=== PATIENT | female | born 1950 | race Caucasian/White ===

== ENCOUNTER → 2016-04-07 | Outpatient (REF) | payer MEDICARE ==
[~2016-04-07] MED LIST: ALDA50TA2 PO; AMLODIPINE PO; CELL500T PO; CIPR500T89 PO; CITA20TA2 PO; CYAN1000 IJ; DOXE25CA PO; ENTO3CAP5 PO; FERR325T69 PO; FOLI1TAB2 PO; FURO20TA2 PO; GLIP10TA PO; INSUDET SC; JANUMET PO; LEVO150T6 PO; MAGN250T2 PO; MAGN400T PO; METF500T PO; OMEP40CA2 PO; PRED10TA2 PO; [UNRECOGNIZED DRUG - CODE] PO; [UNRECOGNIZED DRUG - CODE] PO; [UNRECOGNIZED DRUG - OTHER]
== END ==
LOC: M LAB REF 16:10
PROVIDERS: ATTEND Nurse Practitioner Family
DX: R20.2 Paresthesia of skin (principal)

== ENCOUNTER → 2016-07-20 | Outpatient (REF) | payer MEDICARE ==
[2016-07-20 17:20] LABS: FOLATE > 24.0 NG/ML; VITAMIN B12 LEVEL 593 PG/ML
[2016-07-20 20:23] LABS: FERRITIN 6 NG/ML (8-252); PERCENT SATURATION 5.7 % (13.2-37.4); TOTAL IRON BINDING CAPACITY 542 UG/DL (250-450)
== END ==
LOC: M LAB REF 16:16
PROVIDERS: ATTEND Internal Medicine
DX: D64.9 Anemia, unspecified (principal)

== ENCOUNTER → 2016-12-30 | Outpatient (REF) | payer MEDICARE ==
[~2016-12-30] MED LIST changes: +CIPR-249 PO; -CIPR500T89 PO; -FOLI1TAB2 PO; +FOLI1TAB4 PO; -MAGN250T2 PO; +MAGN250T7 PO; -METF500T PO; +METF500T13 PO
== END ==
LOC: M LAB REF 16:58
PROVIDERS: ATTEND Internal Medicine
DX: N39.0 Urinary tract infection, site not specified (principal)

== ENCOUNTER → 2017-06-06 | Outpatient (REF) | payer MEDICARE | LOC: M LAB REF 17:02 | DX: K80.00 Calculus of gallbladder with acute cholecystitis without obstruction (principal) | CPT/HCPCS: 87086 ==

== ENCOUNTER → 2018-11-24 | Outpatient (REF) | payer MEDICARE ==
[~2018-11-24] MED LIST changes: +BUDE3CAP15 PO; -ENTO3CAP5 PO; +FOLI1TAB11 PO; -FOLI1TAB4 PO
== END ==
LOC: M LAB REF 10:06
PROVIDERS: ATTEND Internal Medicine
DX: R19.7 Diarrhea, unspecified (principal)

== ENCOUNTER → 2019-01-09 | Outpatient (REF) | payer MEDICARE ==
[~2019-01-09] MED LIST changes: -MAGN400T PO; +MAGN400T3 PO
== END ==
LOC: M LAB REF 12:53
PROVIDERS: ATTEND Internal Medicine
DX: R19.7 Diarrhea, unspecified (principal)

== ENCOUNTER → 2019-08-21 | Outpatient (REF) | payer MEDICARE | LOC: M LAB REF 16:27 | PROVIDERS: ATTEND Internal Medicine | DX: R21 Rash and other nonspecific skin eruption (principal) ==

== ENCOUNTER → 2019-10-12 | Outpatient (REF) | payer MEDICARE | LOC: M LAB REF 15:13 | PROVIDERS: ATTEND Internal Medicine | DX: R19.7 Diarrhea, unspecified (principal) ==

== ENCOUNTER → 2020-12-04 | Outpatient (REF) | payer MEDICARE | LOC: M LAB REF 11:34 | PROVIDERS: ATTEND Internal Medicine | DX: D51.9 Vitamin B12 deficiency anemia, unspecified (principal); N39.0 Urinary tract infection, site not specified ==

== ENCOUNTER → 2021-08-12 | Outpatient (REF) | payer MEDICARE ==
[~2021-08-12] MED LIST changes: -MAGN400T3 PO; +MAGN400T33 PO
[2021-08-12 17:23] LABS: INR 1.07; PROTHROMBIN TIME 14.3 SECONDS (12.7-14.5)
[2021-08-12 17:24] LABS: PARTIAL THROMBOPLASTIN TIME 30.3 SECONDS (25.9-37.0)
[2021-08-12 17:41] LABS: VITAMIN B12 LEVEL > 2000 PG/ML (247-911)
[2021-08-14 09:25] LABS: C REACTIVE PROTEIN QUANTITATIV < 0.30 MG/DL (0.00-0.30)
[2021-08-14 09:50] LABS: HEPATITIS B SURFACE ANTIGEN NEGATIVE (NEGATIVE)
[2021-08-14 10:17] LABS: HEPATITIS C VIRUS ABY INDEX 0.1 INDEX (<0.8)
[2021-08-14 10:18] LABS: HEPATITIS B CORE ANTIBODY IGM NEGATIVE (NEGATIVE)
== END ==
LOC: M LAB REF 16:18
PROVIDERS: ATTEND Registered Nurse
DX: D51.9 Vitamin B12 deficiency anemia, unspecified (principal); D50.9 Iron deficiency anemia, unspecified; K75.4 Autoimmune hepatitis

== ENCOUNTER 2021-12-21 21:39 | Inpatient (IN) | payer MEDICARE ==
[~2021-12-21] VITALS: Ht 167.6 cm; Wt 121.6 kg
[2021-12-21] MEDS ORDERED: PRED1TABL PO (21:54)
[2021-12-21] MEDS ORDERED: FURO20TA2 PO (21:54)
[2021-12-21 22:52] LABS: BASO % 0.1 % (0.0-1.0); HEMATOCRIT 48.1 % (36.0-47.0); LYMPH # 0.3 10^3/uL (1.5-5.0); LYMPH % 3.8 % (24.0-44.0); MEAN CORPUSCULAR HEMOGLOBIN 35.4 pg (27.0-33.0); MEAN CORPUSCULAR HGB CONC 33.3 g/dl (32.0-36.5); MEAN CORPUSCULAR VOLUME 106.4 fl (80.0-96.0); MONO # 0.1 10^3/uL (0.0-0.8); MONO % 1.3 % (2.0-8.0); NEUTROPHILS # 7.4 10^3/uL (1.5-8.5); NEUTROPHILS % 94.2 % (36.0-66.0); PLATELET COUNT, AUTOMATED 205 10^3/uL (150-450); RED BLOOD COUNT 4.52 10^6/uL (4.00-5.40); WHITE BLOOD COUNT 7.8 10^3/uL (4.0-10.0)
[2021-12-21] MEDS ORDERED: MORPHINE 4 MG/ML 1ML VIAL/SYRINGE IV ONE (23:25)
[2021-12-21] MEDS ORDERED: NS 500 ML IV ONE (23:25)
[2021-12-21 23:32] LABS: ABG BASE EXCESS 1.9 (-2.0-2.0); ABG O2 SATURATION 98.3 % (95.0-99.0); ABG PARTIAL PRESSURE O2 97.8 mmHg (75.0-100.0); ABG STANDARD HCO3 26.2 MEQ/L (22.0-26.0); ABG TOTAL CO2 24.9 MEQ/L (23.0-31.0); ABG pH (ARTERIAL) 7.506 UNITS (7.350-7.450)
[2021-12-21] MEDS ORDERED: HumuLIN R (REGULAR) INSULIN (NovoLIN R) **100U/ML** PER UNIT IV ONE (23:35)
[2021-12-21 23:54] LABS: HEMOGLOBIN A1c 7.1 %
[2021-12-22] MEDS ORDERED: MORPHINE 4 MG/ML 1ML VIAL/SYRINGE IV ONE (01:05)
[2021-12-22 01:11] LABS: ACETONE/KETONE 5.9 MG/DL (<2.81); ALBUMIN 3.2 GM/DL (3.2-5.2); BILIRUBIN,DIRECT 0.7 MG/DL (0.0-0.2); BILIRUBIN,TOTAL 1.8 MG/DL (0.2-1.0); MAGNESIUM LEVEL 2.1 MG/DL (1.8-2.4); PHOSPHORUS LEVEL 2.5 MG/DL (2.5-4.9); TOTAL PROTEIN 6.4 GM/DL (6.4-8.2)
[2021-12-22 02:04] LABS: CALCIUM LEVEL 9.5 MG/DL (8.8-10.2); CREATININE FOR GFR 1.15 MG/DL (0.55-1.30); GLOMERULAR FILTRATION RATE 49.2 (>39); POTASSIUM SERUM 4.5 MEQ/L (3.5-5.1)
[2021-12-22] MEDS ORDERED: GLUCOSE 4GM CHEW TABLET PO PRN (02:10)
[2021-12-22] MEDS ORDERED: DEXTROSE 50% 50 ML SYRINGE IV PRN (02:10)
[2021-12-22] MEDS ORDERED: GLUCAGON INJ 1MG VIAL SC PRN (02:10)
[2021-12-22] MEDS ORDERED: KETOROLAC 30 MG/ML 1ML VIAL IV ONE (02:10)
[2021-12-22] MEDS ORDERED: ACETAMINOPHEN TAB 650MG DOSE (2X325MG) PO PRN ×2 (02:10→03:05)
[2021-12-22] MEDS: LIDOCAINE 5% (LIDODERM) PATCH TD SCH ×2 (02:42→22:16)
[2021-12-22] MEDS ORDERED: ONDANSETRON 4MG 2ML VIAL IV PRN (02:45)
[2021-12-22] MEDS ORDERED: NORCO, ANEXSIA 5/325MG TABLET (HYDROcodone/ACETAMINOPHEN) PO PRN (03:05)
[2021-12-22] MEDS: carisoprodoL 350 MG TAB PO PRN (04:05)
[2021-12-22] MEDS ORDERED: SYNT112T2 PO (04:41)
[2021-12-22] MEDS ORDERED: PRED10TA2 PO (04:41)
[2021-12-22] MEDS ORDERED: FOLI0.4T5 PO (04:41)
[2021-12-22] MEDS ORDERED: GABA600T4 PO (04:41)
[2021-12-22] MEDS ORDERED: NOVO1INJ4 SC (04:41)
[2021-12-22] MEDS ORDERED: CRAN400C PO (04:41)
[2021-12-22] MEDS ORDERED: HYDR-4571 PO (04:41)
[2021-12-22] MEDS ORDERED: NORT50CA PO (04:41)
[2021-12-22] MEDS ORDERED: VITA-183 PO (04:41)
[2021-12-22] MEDS ORDERED: MYCO250C PO (04:41)
[2021-12-22] MEDS ORDERED: C 50TAB PO (04:41)
[2021-12-22] MEDS ORDERED: ESSE250T PO (04:41)
[2021-12-22] MEDS ORDERED: INSUR SC (04:41)
[2021-12-22] MEDS ORDERED: OMEP40CA5 PO (04:41)
[2021-12-22 05:37] LABS: HEMOGLOBIN 14.7 g/dl (12.0-15.5); MEAN CORPUSCULAR HEMOGLOBIN 35.3 pg (27.0-33.0); MEAN CORPUSCULAR HGB CONC 32.7 g/dl (32.0-36.5); MEAN CORPUSCULAR VOLUME 108.2 fl (80.0-96.0); PLATELET COUNT, AUTOMATED 149 10^3/uL (150-450); RED BLOOD COUNT 4.16 10^6/uL (4.00-5.40); WHITE BLOOD COUNT 5.9 10^3/uL (4.0-10.0)
[2021-12-22] MEDS: MORPHINE 2 MG/ML 1ML VIAL IV PRN ×2 (05:43→22:36)
[2021-12-22 06:07] LABS: ALBUMIN 3.2 GM/DL (3.2-5.2); BILIRUBIN,TOTAL 1.6 MG/DL (0.2-1.0); CALCIUM LEVEL 9.6 MG/DL (8.8-10.2); CREATININE FOR GFR 1.09 MG/DL (0.55-1.30); GLOMERULAR FILTRATION RATE 52.4 (>39); POTASSIUM SERUM 4.3 MEQ/L (3.5-5.1); TOTAL PROTEIN 6.4 GM/DL (6.4-8.2)
[2021-12-22] MEDS: HEPARIN SOD (PORCINE) 5000UNITS/ML 1ML VIAL/SYRINGE SC SCH ×2 (08:37→22:15)
[2021-12-22] MEDS: INSULIN LISPRO (NovoLOG) PER UNIT SC SCH ×4 (08:39→22:15)
[2021-12-22] MEDS: ASCORBIC ACID 500 MG TAB PO SCH (08:40)
[2021-12-22] MEDS: GABAPENTIN 300 MG CAP PO SCH ×3 (08:41→22:17)
[2021-12-22] MEDS: predniSONE 5 MG TAB PO SCH (08:41)
[2021-12-22] MEDS: LEVOTHYROXINE 112MCG TABLET (0.112MG) PO SCH (08:44)
[2021-12-22] MEDS: MYCOPHENOLATE MOFETIL 250 MG CAP (J7517) PO SCH ×2 (08:44→22:17)
[2021-12-22] MEDS ORDERED: FUROSEMIDE 20 MG TAB PO SCH (09:00)
[2021-12-22] MEDS ORDERED: SPIRONOLACTONE 50 MG TAB PO SCH (09:00)
[2021-12-22] MEDS: **NOTE PATIENT COMMENT** MISC XX SCH (09:00)
[2021-12-22] MEDS ORDERED: INSULIN LISPRO (NovoLOG) PER UNIT SC PRN (12:05)
[2021-12-22 13:16] VITALS: BP 150/98
[2021-12-22] MEDS: LEVEMIR (INSULIN DETEMIR) 1 UNITS/0.01ML SC SCH ×2 (14:23→22:16)
[2021-12-22 22:00] VITALS: BP 152/95
[2021-12-22] MEDS: NORTRIPTYLINE 25 MG CAP PO SCH (22:17)
[2021-12-23] MEDS: carisoprodoL 350 MG TAB PO PRN ×3 (00:07→22:25)
[2021-12-23] MEDS: LEVOTHYROXINE 112MCG TABLET (0.112MG) PO SCH (05:23)
[2021-12-23] MEDS: MORPHINE 2 MG/ML 1ML VIAL IV PRN ×2 (05:24→08:21)
[2021-12-23 06:00] VITALS: BP 132/87
[2021-12-23] MEDS ORDERED: MORPHINE 2 MG/ML 1ML VIAL IV ONE (08:15)
[2021-12-23] MEDS: **NOTE PATIENT COMMENT** MISC XX SCH (09:00)
[2021-12-23] MEDS: predniSONE 5 MG TAB PO SCH (10:11)
[2021-12-23] MEDS: LEVEMIR (INSULIN DETEMIR) 1 UNITS/0.01ML SC SCH ×2 (10:11→20:49)
[2021-12-23] MEDS: INSULIN LISPRO (NovoLOG) PER UNIT SC SCH ×4 (10:11→20:50)
[2021-12-23] MEDS: ASCORBIC ACID 500 MG TAB PO SCH (10:11)
[2021-12-23] MEDS: MYCOPHENOLATE MOFETIL 250 MG CAP (J7517) PO SCH ×2 (10:12→20:48)
[2021-12-23] MEDS: GABAPENTIN 300 MG CAP PO SCH ×3 (10:15→20:48)
[2021-12-23] MEDS: HEPARIN SOD (PORCINE) 5000UNITS/ML 1ML VIAL/SYRINGE SC SCH ×2 (10:15→20:48)
[2021-12-23] MEDS ORDERED: HYDROMORPHONE HCL 0.5 MG/ 0.5 ML SYRINGE (J1170 PER 1) IV ONE (11:30)
[2021-12-23 14:00] VITALS: BP 118/75
[2021-12-23] MEDS: NORTRIPTYLINE 25 MG CAP PO SCH (20:48)
[2021-12-23] MEDS: LIDOCAINE 5% (LIDODERM) PATCH TD SCH (20:50)
[2021-12-23] MEDS ORDERED: NYSTATIN 100,000 UNITS/GM TOPICAL PWD 15 GM TOP PRN (21:10)
[2021-12-23 22:00] VITALS: BP 137/77
[2021-12-24] MEDS: PERCOCET 5MG/325MG TAB PO PRN ×3 (03:48→17:44)
[2021-12-24 04:30] VITALS: BP 145/80
[2021-12-24] MEDS: LEVOTHYROXINE 112MCG TABLET (0.112MG) PO SCH (05:45)
[2021-12-24 08:00] VITALS: BP 146/76
[2021-12-24] MEDS: INSULIN LISPRO (NovoLOG) PER UNIT SC SCH ×5 (08:28→21:03)
[2021-12-24] MEDS: LEVEMIR (INSULIN DETEMIR) 1 UNITS/0.01ML SC SCH ×2 (08:29→21:03)
[2021-12-24] MEDS: carisoprodoL 350 MG TAB PO PRN ×2 (08:29→21:03)
[2021-12-24] MEDS: **NOTE PATIENT COMMENT** MISC XX SCH (09:00)
[2021-12-24] MEDS: OMEPRAZOLE 20MG CAP PO SCH (09:24)
[2021-12-24] MEDS: GABAPENTIN 300 MG CAP PO SCH ×3 (09:24→21:04)
[2021-12-24] MEDS: ASCORBIC ACID 500 MG TAB PO SCH (09:24)
[2021-12-24] MEDS: predniSONE 5 MG TAB PO SCH (09:25)
[2021-12-24] MEDS: MYCOPHENOLATE MOFETIL 250 MG CAP (J7517) PO SCH ×2 (09:26→21:04)
[2021-12-24] MEDS: HEPARIN SOD (PORCINE) 5000UNITS/ML 1ML VIAL/SYRINGE SC SCH ×2 (09:58→21:02)
[2021-12-24] MEDS ORDERED: INSULIN LISPRO (NovoLOG) PER UNIT SC ONE (12:45)
[2021-12-24 14:00] VITALS: BP 144/80
[2021-12-24] MEDS: LIDOCAINE 5% (LIDODERM) PATCH TD SCH (21:02)
[2021-12-24] MEDS: NORTRIPTYLINE 25 MG CAP PO SCH (21:04)
[2021-12-25] MEDS: PERCOCET 5MG/325MG TAB PO PRN ×4 (01:03→22:17)
[2021-12-25 04:30] VITALS: BP 145/78
[2021-12-25] MEDS: LEVOTHYROXINE 112MCG TABLET (0.112MG) PO SCH (05:43)
[2021-12-25] MEDS: OMEPRAZOLE 20MG CAP PO SCH (08:22)
[2021-12-25] MEDS: HEPARIN SOD (PORCINE) 5000UNITS/ML 1ML VIAL/SYRINGE SC SCH ×2 (08:22→20:50)
[2021-12-25] MEDS: GABAPENTIN 300 MG CAP PO SCH ×3 (08:22→20:50)
[2021-12-25] MEDS: predniSONE 5 MG TAB PO SCH (08:22)
[2021-12-25] MEDS: ASCORBIC ACID 500 MG TAB PO SCH (08:22)
[2021-12-25] MEDS: LEVEMIR (INSULIN DETEMIR) 1 UNITS/0.01ML SC SCH ×2 (08:23→20:51)
[2021-12-25] MEDS: MYCOPHENOLATE MOFETIL 250 MG CAP (J7517) PO SCH ×2 (09:35→20:50)
[2021-12-25] MEDS: **NOTE PATIENT COMMENT** MISC XX SCH (09:36)
[2021-12-25] MEDS: INSULIN LISPRO (NovoLOG) PER UNIT SC SCH ×7 (09:36→20:51)
[2021-12-25 12:00] VITALS: BP 156/94
[2021-12-25 14:00] VITALS: BP 152/90
[2021-12-25] MEDS: carisoprodoL 350 MG TAB PO PRN (18:09)
[2021-12-25] MEDS: NORTRIPTYLINE 25 MG CAP PO SCH (20:50)
[2021-12-25] MEDS: LIDOCAINE 5% (LIDODERM) PATCH TD SCH (21:05)
[2021-12-26] MEDS: carisoprodoL 350 MG TAB PO PRN ×3 (00:57→20:16)
[2021-12-26] MEDS: LEVOTHYROXINE 112MCG TABLET (0.112MG) PO SCH (04:56)
[2021-12-26] MEDS: PERCOCET 5MG/325MG TAB PO PRN ×4 (04:57→23:52)
[2021-12-26 06:00] VITALS: BP 108/63
[2021-12-26] MEDS: ASCORBIC ACID 500 MG TAB PO SCH (09:30)
[2021-12-26] MEDS: MYCOPHENOLATE MOFETIL 250 MG CAP (J7517) PO SCH ×2 (09:30→20:18)
[2021-12-26] MEDS: OMEPRAZOLE 20MG CAP PO SCH (09:31)
[2021-12-26] MEDS: predniSONE 5 MG TAB PO SCH (09:31)
[2021-12-26] MEDS: GABAPENTIN 300 MG CAP PO SCH ×3 (09:31→20:18)
[2021-12-26] MEDS: HEPARIN SOD (PORCINE) 5000UNITS/ML 1ML VIAL/SYRINGE SC SCH ×2 (09:32→20:17)
[2021-12-26] MEDS: LEVEMIR (INSULIN DETEMIR) 1 UNITS/0.01ML SC SCH ×2 (09:33→20:18)
[2021-12-26] MEDS: INSULIN LISPRO (NovoLOG) PER UNIT SC SCH ×7 (09:34→20:17)
[2021-12-26] MEDS: **NOTE PATIENT COMMENT** MISC XX SCH (09:37)
[2021-12-26] MEDS: NORTRIPTYLINE 25 MG CAP PO SCH (20:18)
[2021-12-26] MEDS: LIDOCAINE 5% (LIDODERM) PATCH TD SCH (20:18)
[2021-12-27] MEDS: LEVOTHYROXINE 112MCG TABLET (0.112MG) PO SCH (05:28)
[2021-12-27] MEDS: PERCOCET 5MG/325MG TAB PO PRN ×3 (05:29→17:45)
[2021-12-27 06:00] VITALS: BP 149/92
[2021-12-27] MEDS: OMEPRAZOLE 20MG CAP PO SCH (09:17)
[2021-12-27] MEDS: ASCORBIC ACID 500 MG TAB PO SCH (09:17)
[2021-12-27] MEDS: GABAPENTIN 300 MG CAP PO SCH ×3 (09:17→21:19)
[2021-12-27] MEDS: predniSONE 5 MG TAB PO SCH (09:18)
[2021-12-27] MEDS: MYCOPHENOLATE MOFETIL 250 MG CAP (J7517) PO SCH ×2 (09:18→21:19)
[2021-12-27] MEDS: HEPARIN SOD (PORCINE) 5000UNITS/ML 1ML VIAL/SYRINGE SC SCH ×2 (09:19→21:19)
[2021-12-27] MEDS: INSULIN LISPRO (NovoLOG) PER UNIT SC SCH ×7 (09:19→21:20)
[2021-12-27] MEDS: LEVEMIR (INSULIN DETEMIR) 1 UNITS/0.01ML SC SCH ×2 (09:21→21:20)
[2021-12-27] MEDS: **NOTE PATIENT COMMENT** MISC XX SCH (09:22)
[2021-12-27] MEDS: carisoprodoL 350 MG TAB PO PRN (16:02)
[2021-12-27] MEDS: LIDOCAINE 5% (LIDODERM) PATCH TD SCH (21:00)
[2021-12-27] MEDS: NORTRIPTYLINE 25 MG CAP PO SCH (21:19)
[2021-12-28] MEDS: PERCOCET 5MG/325MG TAB PO PRN ×3 (03:34→13:25)
[2021-12-28] MEDS: LEVOTHYROXINE 112MCG TABLET (0.112MG) PO SCH (05:20)
[2021-12-28 05:50] VITALS: BP 133/73
[2021-12-28] MEDS: LEVEMIR (INSULIN DETEMIR) 1 UNITS/0.01ML SC SCH (09:09)
[2021-12-28] MEDS: INSULIN LISPRO (NovoLOG) PER UNIT SC SCH ×2 (09:10→09:11)
[2021-12-28] MEDS: GABAPENTIN 300 MG CAP PO SCH (09:11)
[2021-12-28] MEDS: predniSONE 5 MG TAB PO SCH (09:11)
[2021-12-28] MEDS: HEPARIN SOD (PORCINE) 5000UNITS/ML 1ML VIAL/SYRINGE SC SCH (09:11)
[2021-12-28] MEDS: ASCORBIC ACID 500 MG TAB PO SCH (09:11)
[2021-12-28] MEDS: OMEPRAZOLE 20MG CAP PO SCH (09:12)
[2021-12-28] MEDS: **NOTE PATIENT COMMENT** MISC XX SCH (09:14)
[2021-12-28] MEDS: MYCOPHENOLATE MOFETIL 250 MG CAP (J7517) PO SCH (09:59)
[2021-12-28] MEDS ORDERED: SOMA250T PO (12:34)
[2021-12-28] MEDS ORDERED: OXYC1TAB23 PO (12:34)
== END 2021-12-28 13:40 | disposition home health service (06) | DRG 552 ==
LOC: M ED 21:39 → M ED INP 21:40 → ENRESERV 12-22 12:21 → M MSPAV 12-22 13:16 → OBSVTOIN 12-22 18:10
PROVIDERS: ADMIT Family Medicine; ATTEND Internal Medicine
DX: S22.060A Wedge compression fracture of T7-T8 vertebra, initial encounter for closed fracture (principal); S32.010A Wedge compression fracture of first lumbar vertebra, initial encounter for closed fracture; S22.080A Wedge compression fracture of T11-T12 vertebra, initial encounter for closed fracture; K75.4 Autoimmune hepatitis; E03.9 Hypothyroidism, unspecified; E66.01 Morbid (severe) obesity due to excess calories; M48.00 Spinal stenosis, site unspecified; I10 Essential (primary) hypertension; R74.01 Elevation of levels of liver transaminase levels; E78.5 Hyperlipidemia, unspecified; K21.9 Gastro-esophageal reflux disease without esophagitis; E53.8 Deficiency of other specified B group vitamins; E11.65 Type 2 diabetes mellitus with hyperglycemia; E61.1 Iron deficiency; F32.A Depression, unspecified; K42.9 Umbilical hernia without obstruction or gangrene; Z90.79 Acquired absence of other genital organ(s); Z87.891 Personal history of nicotine dependence; F03.90 Unspecified dementia, unspecified severity, without behavioral disturbance, psychotic disturbance, mood disturbance, and anxiety; Z79.2 Long term (current) use of antibiotics; Z79.4 Long term (current) use of insulin; Z79.890 Hormone replacement therapy; Z79.84 Long term (current) use of oral hypoglycemic drugs; Z79.899 Other long term (current) drug therapy; Z88.0 Allergy status to penicillin; Z88.5 Allergy status to narcotic agent; Z88.8 Allergy status to other drugs, medicaments and biological substances; X50.0XXA Overexertion from strenuous movement or load, initial encounter; Y92.009 Unspecified place in unspecified non-institutional (private) residence as the place of occurrence of the external cause; Z20.822 Contact with and (suspected) exposure to COVID-19; Z68.39 Body mass index [BMI] 39.0-39.9, adult

== ENCOUNTER 2021-12-31 22:22 | Inpatient (IN) | payer MEDICARE ==
[~2021-12-31] VITALS: Ht 167.6 cm; Wt 117.0 kg
[~2021-12-31 22:22] MED LIST changes: +C 50TAB PO; +CRAN400C PO; +ESSE250T PO; +FOLI0.4T5 PO; +GABA600T4 PO; +HYDR-4571 PO; +INSUR SC; +MYCO250C PO; +NORT50CA PO; +NOVO1INJ4 SC; +OMEP40CA5 PO; +OXYC1TAB23 PO; +PRED1TABL PO; +SOMA250T PO; +SYNT112T2 PO; +VITA-183 PO
[2022-01-01] MEDS ORDERED: NS 500 ML IV ONE (02:45)
[2022-01-01] MEDS ORDERED: HYDROMORPHONE HCL 0.5 MG/ 0.5 ML SYRINGE (J1170 PER 1) IV ONE (02:45)
[2022-01-01 02:54] LABS: BASO % 0.4 % (0.0-1.0); EOS % 0.4 % (0.0-3.0); HEMATOCRIT 41.5 % (36.0-47.0); HEMOGLOBIN 13.5 g/dl (12.0-15.5); LYMPH # 0.7 10^3/uL (1.5-5.0); LYMPH % 12.2 % (24.0-44.0); MEAN CORPUSCULAR HEMOGLOBIN 35.2 pg (27.0-33.0); MEAN CORPUSCULAR HGB CONC 32.5 g/dl (32.0-36.5); MEAN CORPUSCULAR VOLUME 108.4 fl (80.0-96.0); MONO # 0.4 10^3/uL (0.0-0.8); MONO % 6.2 % (2.0-8.0); NEUTROPHILS # 4.6 10^3/uL (1.5-8.5); NEUTROPHILS % 80.4 % (36.0-66.0); PLATELET COUNT, AUTOMATED 108 10^3/uL (150-450); RED BLOOD COUNT 3.83 10^6/uL (4.00-5.40); WHITE BLOOD COUNT 5.7 10^3/uL (4.0-10.0)
[2022-01-01] MEDS ORDERED: ONDANSETRON 4MG 2ML VIAL As Ordered ONE (03:03)
[2022-01-01] MEDS ORDERED: ONDANSETRON 4MG 2ML VIAL IV ONE (03:05)
[2022-01-01 03:09] LABS: ALBUMIN 3.3 GM/DL (3.2-5.2); BILIRUBIN,DIRECT 0.7 MG/DL (0.0-0.2); BILIRUBIN,TOTAL 1.3 MG/DL (0.2-1.0); CREATININE FOR GFR 1.01 MG/DL (0.55-1.30); GLOMERULAR FILTRATION RATE 57.2 (>39); TOTAL PROTEIN 6.1 GM/DL (6.4-8.2)
[2022-01-01 03:24] LABS: INR 1.01; PROTHROMBIN TIME 13.5 SECONDS (12.5-14.5)
[2022-01-01 03:25] LABS: PARTIAL THROMBOPLASTIN TIME 26.2 SECONDS (24.8-34.2)
[2022-01-01] MEDS ORDERED: PROMETHAZINE 25MG/ML 1ML VIAL IV ONE (03:40)
[2022-01-01 04:04] LABS: RSV AMPLIFICATION NEGATIVE (NEGATIVE)
[2022-01-01] MEDS ORDERED: dexameTHASONE 20MG/5ML VIAL (J1100 PER 1MG) IV ONE (06:45)
[2022-01-01] MEDS ORDERED: HYDROMORPHONE HCL 0.5 MG/ 0.5 ML SYRINGE (J1170 PER 1) IV PRN (06:45)
[2022-01-01] MEDS: dexameTHASONE 4 MG/ML 1ML VIAL (J1100 PER 1MG) IV SCH (09:00)
[2022-01-01] MEDS ORDERED: HYDROmorphone 4MG TABLET PO PRN (10:00)
[2022-01-01] MEDS ORDERED: ONDANSETRON 4MG 2ML VIAL IV PRN (10:00)
[2022-01-01] MEDS ORDERED: MORPHINE 4 MG/ML 1ML VIAL/SYRINGE IV PRN (10:00)
[2022-01-01] MEDS ORDERED: GLUCOSE 4GM CHEW TABLET PO PRN (10:05)
[2022-01-01] MEDS ORDERED: DEXTROSE 50% 50 ML SYRINGE IV PRN (10:05)
[2022-01-01] MEDS ORDERED: GLUCAGON INJ 1MG VIAL SC PRN (10:05)
[2022-01-01] MEDS ORDERED: SOMA250T PO (10:13)
[2022-01-01] MEDS ORDERED: OXYC1TAB23 PO (10:13)
[2022-01-01] MEDS ORDERED: MED REC COMMENT (10:33)
[2022-01-01] MEDS ORDERED: HOME MED LIST COMPLETE! XX SCH (10:40)
[2022-01-01] MEDS: INSULIN LISPRO (NovoLOG) PER UNIT SC SCH ×3 (13:04→21:17)
[2022-01-01] MEDS: ENOXAPARIN 40MG/0.4ML SYRINGE (J1650 PER 10MG) SC SCH ×2 (13:05→21:00)
[2022-01-01] MEDS ORDERED: REMDESIVIR 200 MG in NS 250 ML IV ONE (14:00)
[2022-01-01] MEDS: HYDROmorphone 2 MG TAB PO PRN ×2 (14:40→21:19)
[2022-01-01] MEDS ORDERED: SODIUM CHLORIDE 0.9% INJ 10 ML SYR IV ONE (16:00)
[2022-01-01 16:30] VITALS: BP 149/93
[2022-01-01] MEDS: SPIRONOLACTONE 50 MG TAB PO SCH (17:16)
[2022-01-01] MEDS: GABAPENTIN 300 MG CAP PO SCH ×2 (17:16→21:18)
[2022-01-01 20:05] VITALS: BP 144/80
[2022-01-01] MEDS: MYCOPHENOLATE MOFETIL 250 MG CAP (J7517) PO SCH (21:18)
[2022-01-01] MEDS: NORTRIPTYLINE 25 MG CAP PO SCH (21:18)
[2022-01-02 02:00] VITALS: BP 141/82
[2022-01-02 06:00] VITALS: BP 137/90
[2022-01-02 06:08] LABS: HEMATOCRIT 38.2 % (36.0-47.0); MEAN CORPUSCULAR HEMOGLOBIN 34.8 pg (27.0-33.0); MEAN CORPUSCULAR HGB CONC 31.4 g/dl (32.0-36.5); MEAN CORPUSCULAR VOLUME 110.7 fl (80.0-96.0); PLATELET COUNT, AUTOMATED 111 10^3/uL (150-450); RED BLOOD COUNT 3.45 10^6/uL (4.00-5.40); WHITE BLOOD COUNT 5.8 10^3/uL (4.0-10.0)
[2022-01-02] MEDS: LEVOTHYROXINE 112MCG TABLET (0.112MG) PO SCH (06:24)
[2022-01-02 06:38] LABS: ALBUMIN 2.8 GM/DL (3.2-5.2); ALT/SGPT 43 U/L (12-78); BILIRUBIN,DIRECT 0.7 MG/DL (0.0-0.2); BILIRUBIN,TOTAL 1.1 MG/DL (0.2-1.0); BLOOD UREA NITROGEN 11 MG/DL (7-18); CALCIUM LEVEL 9.1 MG/DL (8.8-10.2); CARBON DIOXIDE LEVEL 31 MEQ/L (21-32); CHLORIDE LEVEL 102 MEQ/L (98-107); CREATININE FOR GFR 0.96 MG/DL (0.55-1.30); GLOMERULAR FILTRATION RATE > 60.0 (>39); GLUCOSE, FASTING 222 MG/DL (70-100); POTASSIUM SERUM 4.7 MEQ/L (3.5-5.1); SODIUM LEVEL 137 MEQ/L (136-145); TOTAL PROTEIN 5.5 GM/DL (6.4-8.2)
[2022-01-02] MEDS: dexameTHASONE 4 MG/ML 1ML VIAL (J1100 PER 1MG) IV SCH (08:16)
[2022-01-02] MEDS: CALCITONIN NASAL SPRAY 3.7 ML BTL SCH (08:16)
[2022-01-02] MEDS: INSULIN LISPRO (NovoLOG) PER UNIT SC SCH ×4 (08:16→20:14)
[2022-01-02] MEDS: ENOXAPARIN 40MG/0.4ML SYRINGE (J1650 PER 10MG) SC SCH ×2 (08:17→20:14)
[2022-01-02] MEDS: MYCOPHENOLATE MOFETIL 250 MG CAP (J7517) PO SCH ×2 (08:17→20:15)
[2022-01-02] MEDS: SPIRONOLACTONE 50 MG TAB PO SCH (08:17)
[2022-01-02] MEDS: GABAPENTIN 300 MG CAP PO SCH ×3 (08:17→20:15)
[2022-01-02] MEDS: HYDROmorphone 2 MG TAB PO PRN ×3 (08:27→22:15)
[2022-01-02] MEDS ORDERED: ENOXAPARIN 40MG/0.4ML SYRINGE (J1650 PER 10MG) SC SCH (09:00)
[2022-01-02] MEDS ORDERED: FLUBLOK(EGG FREE)(QUAD)INFLUENZA VACC 0.5ML SYRINGE 18YRS & OLDER IM.IMMUN ONE (09:00)
[2022-01-02 10:00] VITALS: BP 145/92
[2022-01-02 14:00] VITALS: BP 143/88
[2022-01-02] MEDS ORDERED: REMDESIVIR 100 MG in NS 250 ML IV SCH (14:00)
[2022-01-02] MEDS ORDERED: SODIUM CHLORIDE 0.9% INJ 10 ML SYR IV SCH (15:00)
[2022-01-02 20:06] VITALS: BP 133/85
[2022-01-02] MEDS: NORTRIPTYLINE 25 MG CAP PO SCH (20:15)
[2022-01-03 05:40] VITALS: BP 137/84
[2022-01-03] MEDS: LEVOTHYROXINE 112MCG TABLET (0.112MG) PO SCH (06:34)
[2022-01-03 06:35] LABS: HEMATOCRIT 35.7 % (36.0-47.0); HEMOGLOBIN 11.3 g/dl (12.0-15.5); MEAN CORPUSCULAR HEMOGLOBIN 35.1 pg (27.0-33.0); MEAN CORPUSCULAR HGB CONC 31.7 g/dl (32.0-36.5); MEAN CORPUSCULAR VOLUME 110.9 fl (80.0-96.0); PLATELET COUNT, AUTOMATED 113 10^3/uL (150-450); RED BLOOD COUNT 3.22 10^6/uL (4.00-5.40); WHITE BLOOD COUNT 5.6 10^3/uL (4.0-10.0)
[2022-01-03] MEDS: HYDROmorphone 2 MG TAB PO PRN ×2 (06:35→12:30)
[2022-01-03 07:15] LABS: ALBUMIN 2.8 GM/DL (3.2-5.2); ALT/SGPT 44 U/L (12-78); BILIRUBIN,TOTAL 0.9 MG/DL (0.2-1.0); BLOOD UREA NITROGEN 14 MG/DL (7-18); CALCIUM LEVEL 8.9 MG/DL (8.8-10.2); CARBON DIOXIDE LEVEL 30 MEQ/L (21-32); CHLORIDE LEVEL 101 MEQ/L (98-107); GLOMERULAR FILTRATION RATE > 60.0 (>39); GLUCOSE, FASTING 205 MG/DL (70-100); POTASSIUM SERUM 4.2 MEQ/L (3.5-5.1); SODIUM LEVEL 135 MEQ/L (136-145); TOTAL PROTEIN 5.2 GM/DL (6.4-8.2)
[2022-01-03] MEDS: INSULIN LISPRO (NovoLOG) PER UNIT SC SCH ×2 (07:21→12:17)
[2022-01-03] MEDS: MYCOPHENOLATE MOFETIL 250 MG CAP (J7517) PO SCH (09:09)
[2022-01-03] MEDS: SPIRONOLACTONE 50 MG TAB PO SCH (09:09)
[2022-01-03] MEDS: dexameTHASONE 4 MG/ML 1ML VIAL (J1100 PER 1MG) IV SCH (09:09)
[2022-01-03] MEDS: GABAPENTIN 300 MG CAP PO SCH (09:10)
[2022-01-03] MEDS: CALCITONIN NASAL SPRAY 3.7 ML BTL SCH (09:10)
[2022-01-03] MEDS: ENOXAPARIN 40MG/0.4ML SYRINGE (J1650 PER 10MG) SC SCH (09:10)
[2022-01-03] MEDS ORDERED: CALC20SPR (11:51)
[2022-01-03] MEDS ORDERED: DILA2TAB6 PO (11:51)
[2022-01-04] MEDS ORDERED: HYDR2TAB2 PO (11:29)
[2022-01-05] MEDS ORDERED: predniSONE 5 MG TAB PO SCH (09:00)
== END 2022-01-03 13:42 | disposition home or self-care (01) | DRG 542 ==
LOC: M ED 22:22 → M ED INP 01-01 09:59 → ENRESERV 01-01 14:44 → M MSPAV 01-01 16:34
PROVIDERS: ADMIT Family Medicine; ATTEND Family Medicine
PROC: XW033E5 Introduction of Remdesivir Anti-infective into Peripheral Vein, Percutaneous Approach, New Technology Group 5 (ICD-10-PCS; principal; 2022-01-01)
DX: M48.56XA Collapsed vertebra, not elsewhere classified, lumbar region, initial encounter for fracture (principal); U07.1 COVID-19; Z68.41 Body mass index [BMI] 40.0-44.9, adult; K75.4 Autoimmune hepatitis; I10 Essential (primary) hypertension; E78.5 Hyperlipidemia, unspecified; K21.9 Gastro-esophageal reflux disease without esophagitis; E53.8 Deficiency of other specified B group vitamins; D50.9 Iron deficiency anemia, unspecified; E03.9 Hypothyroidism, unspecified; E66.01 Morbid (severe) obesity due to excess calories; E11.9 Type 2 diabetes mellitus without complications; F32.A Depression, unspecified; Z87.891 Personal history of nicotine dependence; Z88.0 Allergy status to penicillin; Z88.5 Allergy status to narcotic agent; Z88.8 Allergy status to other drugs, medicaments and biological substances; Z79.899 Other long term (current) drug therapy

== ENCOUNTER → 2022-01-14 | Outpatient (CLI) | payer MEDICARE ==
[~2022-01-14] MED LIST changes: +CALC20SPR; +DILA2TAB6 PO; +HYDR2TAB2 PO; +MED REC COMMENT
== END ==
LOC: M WUC 13:17
PROVIDERS: ATTEND Registered Nurse
DX: S22.31XA Fracture of one rib, right side, initial encounter for closed fracture (principal); S27.329A Contusion of lung, unspecified, initial encounter; X58.XXXA Exposure to other specified factors, initial encounter; R93.6 Abnormal findings on diagnostic imaging of limbs

== ENCOUNTER → 2022-04-09 | Outpatient (CLI) | payer MEDICARE ==
[2022-04-09 12:37] VITALS: BP 171/109
[2022-04-09 13:21] LABS: SOURCE, BODY FLUID GLUCOSE ASCITES
[2022-04-09 13:22] LABS: ASCITES FL COLOR ORANGE (COLORLESS); LDH, BODY FLUID 73 U/L (NOT ESTABLISHED); SOURCE, BODY FLUID ASCITES; SOURCE, BODY FLUID LDH ASCITES
[2022-04-09 13:23] LABS: APPEARANCE, BODY FLUID HAZY (CLEAR); SOURCE, BODY FLUID TOT PROTEIN ASCITES; TOTAL PROTEIN, BODY FLUID < 2.0 G/DL (NOT ESTABLISHED)
== END ==
LOC: M IRPRO 11:38
DX: R18.8 Other ascites (principal)